=== PATIENT | male | born 1990 | race Caucasian/White ===

== ENCOUNTER 2018-07-15 00:18 | Emergency (ER) | payer OTHER ==
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
[2018-07-15 01:25] VITALS: BP 133/75
== END 2018-07-15 01:22 | disposition home or self-care (01) ==
LOC: ED 00:18

== ENCOUNTER 2019-04-03 18:31 | Emergency (ER) | payer SELFPAY ==
[2019-04-03] MEDS ORDERED: Sulfamethox/Trimethoprim DS 800/160* TAB PO ONE (19:11)
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
[2019-04-03 20:49] VITALS: BP 122/84
== END 2019-04-03 20:48 | disposition home or self-care (01) ==
LOC: ED 18:31
DX: S01.81XA Laceration without foreign body of other part of head, initial encounter (principal); S09.90XA Unspecified injury of head, initial encounter; F17.290 Nicotine dependence, other tobacco product, uncomplicated; Y09 Assault by unspecified means
CPT/HCPCS: 12013; 70450; 99282; A9270-GY